=== PATIENT | male | born 1950 | race Caucasian/White ===

== ENCOUNTER 2025-01-28 17:08 | Emergency (ER) | payer OTHER, SELFPAY ==
[2025-01-28 17:41] VITALS: BP 127/73
--- NOTE | 2025-01-28 17:54 | ED.GENMED ---
ED Provider Triage
<Lili Celis PA-C - Last Filed: 01/28/25 18:37>
-
Patient seen by provider in Triage?: Seen in Triage
74-year-old male with a history of diverticulosis but never had diverticulitis has had pain in his left lower abdomen/inguinal region since yesterday, intermittently worse, seems to be worse with movement and changing position but he does have it
present at rest as well. It is not associated with nausea vomiting or diarrhea. He thought maybe he had a hernia. Does not radiate down to his testicles. He has not felt a lump.
A medical screening examination has been initiated by a qualified medical provider. Based on the assessment performed at this time, it has been determined that an emergent medical condition may exist and the patient has been informed that further
medical evaluation and possible additional diagnostic testing may be needed.
HPI: This is a medical evaluation conducted in person to initiate diagnostic evaluation and provide initial therapeutics. Please see further documentation by the treating clinician.
GENERAL: Alert , in no apparent distress
ENT: No visible abnormalities
LUNGS: No acute respiratory distress
NEUROLOGICAL: Alert and oriented
Abdomen: Very difficult to examine the patient in the triage room fully clothed, I did reproduce the tenderness in his left lower quadrant but also was questioning whether he has a inguinal lump, it was not obvious. I did not perform a testicular
exam
SKIN: Skin intact. No visible changes.
MUSCULOSKELETAL: Moving extremities normally
PSYCH: Normal and appropriate interaction.
74-year-old male with a history of diverticulosis, never had diverticulitis here with left lower quadrant pain/inguinal pain. It is difficult to examine him seated with where his pain is to rule out hernia. Given his tenderness I will place him in
for CT with IV contrast as well as blood work and a urine
History of Present Illness
<Lili Celis PA-C - Last Filed: 01/28/25 18:37>
General
Chief Complaint: Abdominal Pain
Time Seen by Provider: 01/28/25 22:19
<Sandra Hernandez PA-C - Last Filed: 01/29/25 03:36>
General
Source: patient
Exam Limitations: none
Nursing documentation reviewed up to this point in time: agreed with
History of Present Illness
History of Present Illness:
Patient is a 74-year-old male with history atrial fibrillation on Coumadin, hypertension, hyperlipidemia presenting to the emergency department for evaluation of abdominal pain. Patient states yesterday he started with pain in his left lower
abdomen which she thought was a muscle strain. Today�pain was worse prompting visit to his primary care doctor. Patient's primary care provider was concerned that he may have diverticulitis and was sent to the emergency department for a CT scan.
Patient states pain is 8/10 with certain movements although he is relatively comfortable at rest. Patient denies any radiation of pain into his groin or back. Patient denies any fever, chills, nausea/vomiting, anorexia, or diarrhea/constipation.
No dysuria or hematuria. No chest pain or shortness of breath.
Past History
<Lili Celis PA-C - Last Filed: 01/28/25 18:37>
Past History
ED Past Medical History: Arrthythmia
ED Past Surgical History: Negative Cardiac
Social History
Tobacco: Non-smoker
Alcohol: None
Drug: None
Personal:
Living: with family
Employment: Employed
Review of Systems
<Sandra Hernandez PA-C - Last Filed: 01/29/25 03:36>
Review of Systems
Allergies reviewed?: Yes
All Other Systems: ROS reviewed and negative except as documented in HPI and ROS
Phy Exam
<Sandra Hernandez PA-C - Last Filed: 01/29/25 03:36>
Physical Exam
Physical Exam:
Vitals: Vital signs stable. Afebrile
General: Patient is well appearing, no acute distress
Skin: Warm and dry, no rashes or lesions
Head: Normocephalic, atraumatic
Eyes: Sclera nonicteric. EOMs intact. No nystagmus.
Throat: Protecting airway
Neck: Normal ROM, no cervical spine tenderness, no meningismus
Cardiac: Regular rate and rhythm, no murmurs.
Pulm: Normal respiratory effort, no wheezes, rales, rhonchi heard on exam.
Abdomen: Abdomen soft. Moderate tenderness in left lower quadrant without rebound tenderness or guarding. No CVA tenderness
Extremities: No evidence of cyanosis or edema
Neuro: AAOx3. Grossly intact.
Psychiatric: Normal affect.
Course
<Lili Celis PA-C - Last Filed: 01/28/25 18:37>
Orders/Labs/Results
Orders:
Orders
01/28/25 17:50
EKG [Electrocardiogram (*1)] Urgent
Reason for Study: Abdominal Pain
EKG- Treatment ONCE
01/28/25 17:57
CT Abd/Pel (IV only)-[facility] only Urgent
Comment:
Reason For Exam: LLQ pain, h/o diverticulosis; divertic vs hernia
01/28/25 18:12
CMP [Comprehensive Metabolic Panel] Urgent
Complete Blood Count/With Diff Urgent
Lipase Urgent
PTT Urgent
Prothrombin Time Urgent
01/28/25 23:24
Amoxicillin 875 mg/Clav 125 mg [Augmentin 875 mg/125 mg] 1 tablet PO NOW STA
Abnormal Lab Results
01/28/25
18:12
WBC 11.1 H 10^3/uL
(4.8-10.8)
MPV 10.8 H fL
(7.4-10.4)
Absolute Neuts (auto) 9.4 H 10^3/uL
(1.4-6.5)
Absolute Lymphs (auto) 0.8 L 10^3/uL
(1.2-3.4)
Absolute Monos (auto) 0.8 H 10^3/uL
(0.1-0.6)
Neutrophils % 85.0 H %
(42.2-75.2)
Lymphocytes % 7.0 L %
(20.5-51.1)
PT 24.3 H Sec
(11.4-14.6)
APTT 44.8 H Sec
(23.4-35.0)
Glucose 100 H mg/dl
(70-99)
01/28/25 18:12
01/28/25 18:12
Vital Signs
Initial and Last Documented VS:
Initial Vital Signs
Temp Pulse Resp BP Pulse Ox
98.4 F 100 20 127/73 98
01/28/25 17:41 01/28/25 17:41 01/28/25 17:41 01/28/25 17:41 01/28/25 17:41
Last Documented Vital Signs
Temp Pulse Resp BP Pulse Ox
97.6 F 100 16 112/73 97
01/28/25 22:59 01/28/25 22:59 01/28/25 22:59 01/28/25 22:59 01/28/25 22:59
<Sandra Hernandez PA-C - Last Filed: 01/29/25 03:36>
Orders/Labs/Results
Orders:
Orders
01/28/25 17:50
EKG [Electrocardiogram (*1)] Urgent
Reason for Study: Abdominal Pain
EKG- Treatment ONCE
01/28/25 17:57
CT Abd/Pel (IV only)-[facility] only Urgent
Comment:
Reason For Exam: LLQ pain, h/o diverticulosis; divertic vs hernia
01/28/25 18:12
CMP [Comprehensive Metabolic Panel] Urgent
Complete Blood Count/With Diff Urgent
Lipase Urgent
PTT Urgent
Prothrombin Time Urgent
01/28/25 23:24
Amoxicillin 875 mg/Clav 125 mg [Augmentin 875 mg/125 mg] 1 tablet PO NOW STA
Abnormal Lab Results
01/28/25
18:12
WBC 11.1 H 10^3/uL
(4.8-10.8)
MPV 10.8 H fL
(7.4-10.4)
Absolute Neuts (auto) 9.4 H 10^3/uL
(1.4-6.5)
Absolute Lymphs (auto) 0.8 L 10^3/uL
(1.2-3.4)
Absolute Monos (auto) 0.8 H 10^3/uL
(0.1-0.6)
Neutrophils % 85.0 H %
(42.2-75.2)
Lymphocytes % 7.0 L %
(20.5-51.1)
PT 24.3 H Sec
(11.4-14.6)
APTT 44.8 H Sec
(23.4-35.0)
Glucose 100 H mg/dl
(70-99)
01/28/25 18:12
01/28/25 18:12
Vital Signs
Initial and Last Documented VS:
Initial Vital Signs
Temp Pulse Resp BP Pulse Ox
98.4 F 100 20 127/73 98
01/28/25 17:41 01/28/25 17:41 01/28/25 17:41 01/28/25 17:41 01/28/25 17:41
Last Documented Vital Signs
Temp Pulse Resp BP Pulse Ox
97.6 F 100 16 112/73 97
01/28/25 22:59 01/28/25 22:59 01/28/25 22:59 01/28/25 22:59 01/28/25 22:59
<Sandra Hernandez PA-C - Last Filed: 01/29/25 03:36>
MDM/Problems Addressed
Differential Diagnosis Includes:
Not limited to: Uncomplicated diverticulitis, complicated diverticulitis, incarcerated hernia, appendicitis, pyelonephritis, etc.
MDM/Problems Addressed:
74-year-old male presenting with left lower abdominal discomfort for 2 days. No associated fever, vomiting, anorexia, diarrhea. Patient has stable vital signs on arrival. He is afebrile. On exam�patient very well-appearing, in no apparent
distress. Abdomen is soft with moderate tenderness in left lower quadrant without rebound tenderness or guarding. Cardio/pulmonary assessment unremarkable. Patient declines analgesia in emergency department. Basic labs and CT scan initiated in
triage. Labs with very mild leukocytosis otherwise no clinically significant abnormalities. CT does show severe diverticulitis of proximal sigmoid colon without evidence of perforation or pericolonic abscess.
Discussed findings with patient and his at length regarding admission to hospital for IV antibiotics versus discharge home on trial of p.o. antibiotic and very close return precautions. Shared decision making utilized with patient. Patient
would prefer trial of p.o. antibiotics at home and given he is afebrile with normal vital signs and no evidence of complicated diverticulitis�feel this is a reasonable option. Lengthy discussion regarding very strict return precautions including
fever worsening abdominal pain nausea/vomiting, changes in mental status, etc. First dose of Augmentin given in emergency department and remainder prescription sent to pharmacy. They will follow with primary care early next week, as well. Advise
clear liquid diet and transition to low fiber. Tylenol for pain.
Chronic conditions affecting care:
Atrial fibrillation on Coumadin, diverticulosis
Acute Exacerbation and/or Progression of Chronic Illness:
Acute diverticulitis
<Sandra Hernandez PA-C - Last Filed: 01/29/25 03:36>
*Radiology
Radiology exam reviewed: radiology read reviewed (Severe diverticulitis without abscess or perforation)
*Pulse Oximetry
Patient hypoxic: no
*EKG
Interpreted by ED Provider?: NA
*Director Interpretation
Rate: Director- N/A
*Critical Care Note
Total Time (30-74mins, 75-104mins- exclusive of procedures): Not Applicable
<Sandra Hernandez PA-C - Last Filed: 01/29/25 03:36>
Patient Management
Escalation/DeEscalation of care consider admission/obs:
Considered admission although given patient is afebrile with no evidence of complicated diverticulitis and pain well-controlled�will discharge home with trial of p.o. antibiotic
ED Attending Note
<Lili Celis PA-C - Last Filed: 01/28/25 18:37>
-
Portions of this chart may have been created with voice recognition software.� Occasional wrong word or��sound alike� substitutions may have occurred due to the inherent limitations of voice recognition software.
Discharge Plan
Departure
Patient Disposition: Home (Routine Discharge)
Date of Disposition: 01/28/25
Time of Disposition: 23:25
Patient with high blood pressure during this ER visit?: No
Condition: Good
Covid-19: Not Applicable
Discharge Problem:
Acute diverticulitis
Instructions: Clear Liquid Diet, Diverticulitis (DC), Low-fiber diet
Prescriptions:
New
amoxicillin-pot clavulanate 875-125 mg tablet
1 tab PO BID 10 Days Qty: 20 0RF
No Action
propafenone 150 MG tablet
150 mg PO PRN PRN (Reason: as needed)
fluticasone propionate [Flovent Rotadisk] 50 MCG blister with device
1 puff inhalation PRN PRN (Reason: as needed)
metoprolol succinate 50 MG tablet extended release 24 hr
50 mg PO DAILY
omeprazole [Prilosec] 40 MG capsule,delayed release(DR/EC)
40 mg PO DAILY
aspirin 81 MG tablet,delayed release (DR/EC)
81 mg PO DAILY
simvastatin 20 MG tablet
20 mg PO HS
ascorbic acid (vitamin C) [Vitamin C] 500 MG capsule, extended release
500 mg PO DAILY
multivitamin 1 EACH capsule
1 ea PO .HOLD
Patient Comments:
pt advised by to hold for 7 days due to Vitamin E
omega-3 fatty acids-fish oil 1 EACH capsule
1 ea PO .ON HOLD
Patient Comments:
pt advised by to hold for 7 days due to Vitamin E
cholecalciferol (vitamin D3) 1,000 UNIT tablet,chewable
2,000 unit PO DAILY
Referrals:
Franny Richards CRNP [Family Provider] - Follow up in 2-3 days
Activity Restrictions/Additional Instructions:
RETURN TO THE EMERGENCY DEPARTMENT WITH ANY FEVERS, WORSENING/PERSISTENT ABDOMINAL PAIN, NAUSEA/VOMITING, SIGNS OF DEHYDRATION, WORSENING IN CURRENT SYMPTOMS, OR ANY OTHER CONCERNS
-As discussed�your CT scan showed evidence of severe diverticulitis of your sigmoid colon today. There was no evidence for perforation or abscess.
-It is important that you complete the course of antibiotics which have been sent to your pharmacy.
-As discussed�you should follow a clear liquid diet for the next few days and then transition to a low fiber diet.
-You can take Tylenol as needed for pain. Stay well-hydrated
-Follow-up with your primary care physician in a few days to ensure symptoms are improving/for further evaluation
Monitor your symptoms closely and return to the emergency department with any acute worsening/new symptoms or any signs of worsening infection
Interventions
Interventions:
*Risk Screen - Suicide Last Done: 01/28/25 23:02
*General Assessment Last Done: 01/28/25 23:45
*Neglect/Abuse Screening Last Done: 01/28/25 23:45
ED- Fall Risk Assessment Last Done: 01/28/25 23:02
*ED COVID-19 Vaccine History Last Done: 01/28/25 17:41
*Nursing Disposition Last Done: 01/28/25 23:45
SC-Lxtlyk-Gxqwcmtevs Assessment Last Done: 01/28/25 23:45
Discharge Date and Time
Discharge Date/Time: 01/28/25 23:45
Print Language: FRENCH
[2025-01-28 17:56] VITALS: BMI 30.1
[2025-01-28 18:36] LABS: % Basophils 0.2 % (0-2); % Eosinophils 0.5 % (0-6); % Immature Granulocytes 0.4 % (0-0.5); % Monocytes 6.9 % (1.7-9.3); Absolute Eosinophils 0.1 10^3/uL (0-0.7); Absolute Lymphocytes 0.8 10^3/uL (1.2-3.4); Absolute Monocytes 0.8 10^3/uL (0.1-0.6); Absolute Neutrophils 9.4 10^3/uL (1.4-6.5); Hematocrit 46.4 % (39.0-52.0); Hemoglobin 15.5 g/dL (13.0-18.0); Mean Corp Hgb Conc. 33.4 g/dL (33.0-37.0); Mean Corpuscular Volume 92.8 fL (80.0-94.0); Mean Platelet Volume 10.8 fL (7.4-10.4); Nucleated Red Blood Cells % 0 % (-); Platelet Count 192 10^3/uL (130-400); Red Cell Dist. Width 12.4 % (11.5-14.5); White Blood Cell Count 11.1 10^3/uL (4.8-10.8)
[2025-01-28 18:40] LABS: ALT (SGPT) 25 U/L (0-50); AST (SGOT) 26 U/L (17-59); Albumin 4.4 g/dl (3.5-5.0); Alkaline Phosphatase 62 U/L (38-126); Blood Urea Nitrogen 19 mg/dl (9-20); Calcium 9.3 mg/dl (8.4-10.2); Carbon Dioxide 24 mmol/L (22-30); Chloride 104 mmol/L (98-107); Estimated Creatinine Clearance 78 ml/min; Glucose 100 mg/dl (70-99); Lipase 178 U/L (23-300); Potassium 4.5 mmol/L (3.5-5.1); Sodium 136 mmol/L (135-145); Total Protein 7.6 g/dl (6.3-8.2); eGFR > 60.00
[2025-01-28 18:52] LABS: INR 2.13; PT 24.3 Sec (11.4-14.6)
[2025-01-28 18:53] LABS: APTT 44.8 Sec (23.4-35.0)
[2025-01-28 22:59] VITALS: BP 112/73
[2025-01-28] MEDS: AUGMENTIN 875 MG/125 MG 1 TABLET PO (23:43)
== END 2025-01-28 23:45 | disposition home or self-care (01) ==
LOC: EMR 17:08
PROVIDERS: Physician Assistant; Student in an Organized Health Care Education/Training Program; EMERGENCY PHYSICIAN Student in an Organized Health Care Education/Training Program; FAMILY PHYSICIAN Nurse Practitioner
DX: K57.32 Diverticulitis of large intestine without perforation or abscess without bleeding (principal); I48.91 Unspecified atrial fibrillation; I10 Essential (primary) hypertension; E78.00 Pure hypercholesterolemia, unspecified; Z79.01 Long term (current) use of anticoagulants
CPT/HCPCS: 99284; 74177; 80053; 83690; 85025; 85610; 85730; 93005; Q9967

== ENCOUNTER → 2025-02-19 10:07 | Outpatient (REF) | payer OTHER, SELFPAY | LOC: HWRCS 10:07 | PROVIDERS: ATTENDING PHYSICIAN Internal Medicine Cardiovascular Disease; FAMILY PHYSICIAN Nurse Practitioner | DX: I77.810 Thoracic aortic ectasia (principal) | CPT/HCPCS: 93306 ==

== ENCOUNTER 2025-07-05 18:56 | Emergency (ER) | payer OTHER, SELFPAY ==
[2025-07-05 19:06] VITALS: BP 130/84
[2025-07-05 19:42] LABS: Hematocrit 41.3 % (39.0-52.0); Hemoglobin 13.9 g/dL (13.0-18.0); INR 2.01; Mean Corp Hgb Conc. 33.7 g/dL (33.0-37.0); Mean Corpuscular Volume 91.8 fL (80.0-94.0); Nucleated Red Blood Cells % 0 % (-); PT 22.9 Sec (11.4-14.6); Platelet Count 184 10^3/uL (130-400); Red Cell Dist. Width 12.8 % (11.5-14.5)
[2025-07-05 19:55] LABS: ALT (SGPT) 25 U/L (0-50); AST (SGOT) 25 U/L (17-59); Albumin 4.3 g/dl (3.5-5.0); Alkaline Phosphatase 39 U/L (38-126); Blood Urea Nitrogen 18 mg/dl (9-20); Calcium 9.3 mg/dl (8.4-10.2); Carbon Dioxide 26 mmol/L (22-30); Chloride 108 mmol/L (98-107); Glucose 98 mg/dl (70-99); Potassium 4.8 mmol/L (3.5-5.1); Sodium 139 mmol/L (135-145); Total Protein 7.1 g/dl (6.3-8.2); eGFR > 60.00
[2025-07-05 23:00] VITALS: BP 108/77
[2025-07-05 23:05] VITALS: BMI 28.6
[2025-07-05 23:40] VITALS: BP 125/77
--- NOTE | 2025-07-05 23:43 | ED.GENMED ---
History of Present Illness
General
Chief Complaint: Fall
Source: patient and spouse
Time Seen by Provider: 07/05/25 22:34
History of Present Illness
History of Present Illness:
74-year-old male presents to the emergency room for evaluation of a head injury. Patient was walking up a flight of concrete steps from his porch into his house when he tripped and struck his head. No loss of consciousness. Patient does take
Coumadin prompting his decision to come to the emergency room. He denies any focal weakness numbness or tingling. He denies any nausea or vomiting. He has a mild headache. He denies any neck pain.
Past History
Past History
ED Past Medical History: Arrthythmia
ED Past Surgical History: Negative Cardiac
Social History
Tobacco: Non-smoker
Alcohol: None
Drug: None
Personal:
Living: with family
Employment: Employed
Phy Exam
Physical Exam
Physical Exam:
General: Awake, Alert, Oriented X3. No acute distress.
Vitals: unremarkable
Head: Right frontal parietal abrasion and hematoma
Eyes: Pupils equal, EOMI
Throat: Airway intact, no exudates
Neck: Trachea midline, no tenderness to palpation along the cervical spine
Lungs: Clear and equal b/l
Heart: Regular rate, no murmurs
Abd: Soft, Nontender, No pulsatile mass
Neuro: No focal weakness or numbness
Skin: Warm, dry, no rash
Extremities: pulses equal b/l, no edema
Course
Orders/Labs/Results
Orders:
Orders
07/05/25 18:[address] [CT Head W/o Iv Contrast] Urgent
Comment:
Reason For Exam: head injury on coumadin
07/05/25 19:18
Complete Blood Count/With Diff Urgent
Comprehensive Metabolic Panel Urgent
PT/INR [Prothrombin Time] Urgent
07/05/25 23:15
CT Cervical Spine W/o Iv Contr Urgent
Comment:
Reason For Exam: fall head injury
07/05/25 23:27
Phytonadione [Aquamephyton] 10 mg 0.9% Sodium Chloride 50 ml [Nss] 50 ml IV NOW
07/05/25 23:45
Prothrombin Complex(Pcc),Human [Kcentra] 2,094 unit Empty Viaflex Container 100 ml [Viaflex Empty Container] 80 ml IV ONCE
Does patient have a dx of serious acute active bleeding?: Yes
Does patient have prior history of HIT?: No
Urgent surgery/invasive procedure planned in next 6 hours?: No
Abnormal Lab Results
07/05/25
19:18
RBC 4.50 L 10^6/uL
(4.70-6.10)
MPV 10.8 H fL
(7.4-10.4)
Absolute Lymphs (auto) 1.0 L 10^3/uL
(1.2-3.4)
Lymphocytes % 16.6 L %
(20.5-51.1)
PT 22.9 H Sec
(11.4-14.6)
Chloride 108 H mmol/L
(98-107)
07/05/25 19:18
07/05/25 19:18
Vital Signs
Initial and Last Documented VS:
Initial Vital Signs
Temp Pulse Resp BP Pulse Ox
97.8 F 81 18 130/84 99
07/05/25 19:06 07/05/25 19:06 07/05/25 19:06 07/05/25 19:06 07/05/25 19:06
Last Documented Vital Signs
Temp Pulse Resp BP Pulse Ox
97.8 F 91 9 114/77 98
07/05/25 19:06 07/06/25 00:00 07/06/25 00:00 07/06/25 00:00 07/06/25 00:00
MDM/Problems Addressed
Differential Diagnosis Includes:
Scalp contusion, concussion, subdural, cerebral contusion
MDM/Problems Addressed:
Patient presents emergency room for evaluation of a head injury. He has a very benign exam. He is at his baseline mental status. Since his INR is 2.0. His CT does show evidence of a small subarachnoid hemorrhage or cerebral contusion.
Communicated with Dr. Sandra Ferro at [facility]. Recommends reversal of anticoagulation transfer for trauma at [facility].
Excepted a grand view by trauma. CT cervical spine shows no acute abnormality
*Radiology
Radiology exam reviewed: radiology read reviewed
*Pulse Oximetry
SaO2: 96
Oxygen Mode of Delivery: Room air
Patient hypoxic: no
*Band Reamer Machine Operator Interpretation
Rate: normal
Interpretation: normal
Rhythm: sinus
*Critical Care Note
Total Time (30-74mins, 75-104mins- exclusive of procedures): 33 min
comment:
Critical care statement: A total of 33 minutes of critical care time was provided for this patient. This includes management of unstable vital signs, evaluation of the patient at bedside, reviewing the patient's pertinent medical records, discussion
with consultants, review of old EKGs and review of pertinent medical records. This time with separate from time utilized to perform the aforementioned documented procedures
ED Attending Note
-
Portions of this chart may have been created with voice recognition software.� Occasional wrong word or��sound alike� substitutions may have occurred due to the inherent limitations of voice recognition software.
Discharge Plan
Departure
Patient Disposition: Acute Care Hospital
Date of Disposition: 07/05/25
Time of Disposition: 23:58
Condition: Fair
Discharge Problem:
Cerebral contusion, Warfarin-induced coagulopathy
Prescriptions:
No Action
propafenone 150 MG tablet
150 mg PO PRN PRN (Reason: as needed)
fluticasone propionate [Flovent Rotadisk] 50 MCG blister with device
1 puff inhalation PRN PRN (Reason: as needed)
metoprolol succinate 50 MG tablet extended release 24 hr
50 mg PO DAILY
omeprazole [Prilosec] 40 MG capsule,delayed release(DR/EC)
40 mg PO DAILY
aspirin 81 MG tablet,delayed release (DR/EC)
81 mg PO DAILY
simvastatin 20 MG tablet
20 mg PO HS
ascorbic acid (vitamin C) [Vitamin C] 500 MG capsule, extended release
500 mg PO DAILY
multivitamin 1 EACH capsule
1 ea PO .HOLD
Patient Comments:
pt advised by to hold for 7 days due to Vitamin E
omega-3 fatty acids-fish oil 1 EACH capsule
1 ea PO .ON HOLD
Patient Comments:
pt advised by to hold for 7 days due to Vitamin E
cholecalciferol (vitamin D3) 1,000 UNIT tablet,chewable
2,000 unit PO DAILY
amoxicillin-pot clavulanate 875-125 mg tablet
1 tab PO BID 10 Days Qty: 20 0RF
Referrals:
Franny Richards CRNP [Family Provider, Family Practice]
Hospital Transfer
Other hospital: [facility]
I certify that the patient requires transfer: Yes
Discussed case with accepting physician: Dr. ruiz
Reason for transfer: higher level of care
Interventions
Interventions:
*Risk Screen - Suicide Last Done: 07/05/25 19:09
*General Assessment Last Done: 07/05/25 19:09
*Neglect/Abuse Screening Last Done: 07/05/25 23:05
*ED- Fall Risk Assessment Last Done: 07/05/25 23:05
*ED COVID-19 Vaccine History Last Done: 07/05/25 19:09
ED-Musculoskeletal Assessment Last Done: 07/05/25 23:06
ED- Neurological Assessment Last Done: 07/05/25 23:06
ED-Skin Assessment Last Done: 07/05/25 23:06
Discharge Date and Time
Print Language: [place]
[2025-07-05] MEDS: KCENTRA 80 UNIT IV (23:44)
[2025-07-05] MEDS: AQUAMEPHYTON 51 MG IV (23:51)
[2025-07-06] VITALS: BP 114/77
[2025-07-06 01:00] VITALS: BP 128/74
[2025-07-06 02:00] VITALS: BP 111/71
== END 2025-07-06 02:26 | disposition short-term general hospital (02) ==
LOC: EMR 18:56
PROVIDERS: Student in an Organized Health Care Education/Training Program; EMERGENCY PHYSICIAN Emergency Medicine; FAMILY PHYSICIAN Nurse Practitioner
DX: S06.310A Contusion and laceration of right cerebrum without loss of consciousness, initial encounter (principal); W01.198A Fall on same level from slipping, tripping and stumbling with subsequent striking against other object, initial encounter; D68.32 Hemorrhagic disorder due to extrinsic circulating anticoagulants; T45.515A Adverse effect of anticoagulants, initial encounter; I49.9 Cardiac arrhythmia, unspecified; Z79.01 Long term (current) use of anticoagulants; Z79.82 Long term (current) use of aspirin
CPT/HCPCS: 99291; 96365; 96375; 70450; 72125; 80053; 85025; 85610; J7168

== ENCOUNTER → 2025-07-12 11:43 | Outpatient (REF) | payer OTHER, SELFPAY | LOC: HWRAD 11:43 | PROVIDERS: ATTENDING PHYSICIAN Nurse Practitioner Family; FAMILY PHYSICIAN Nurse Practitioner | DX: I60.9 Nontraumatic subarachnoid hemorrhage, unspecified (principal) | CPT/HCPCS: 70450 ==